=== PATIENT | male | born 1990 | race Caucasian/White ===

== ENCOUNTER 2016-11-01 18:14 | Emergency (ER) | payer MEDICAID ==
[~2016-11-01] VITALS: Ht 182.9 cm; Wt 92.3 kg
[2016-11-01 18:33] VITALS: BP 149/76
== END 2016-11-01 19:20 | disposition home or self-care (01) ==
LOC: ED 19:14
DX: Z76.0 Encounter for issue of repeat prescription (principal); F31.70 Bipolar disorder, currently in remission, most recent episode unspecified
CPT/HCPCS: 99283

== ENCOUNTER 2017-02-10 17:17 | Emergency (ER) | payer MEDICAID ==
[~2017-02-10] VITALS: Ht 182.9 cm; Wt 92.4 kg
[2017-02-10 17:19] VITALS: BP 130/80
== END 2017-02-10 17:42 | disposition home or self-care (01) ==
LOC: ED 17:27
DX: T63.301A Toxic effect of unspecified spider venom, accidental (unintentional), initial encounter (principal); F90.9 Attention-deficit hyperactivity disorder, unspecified type; F17.200 Nicotine dependence, unspecified, uncomplicated; F31.9 Bipolar disorder, unspecified
CPT/HCPCS: 99283

== ENCOUNTER 2017-05-19 16:49 | Emergency (ER) | payer MEDICAID ==
[~2017-05-19] VITALS: Ht 182.9 cm; Wt 79.1 kg
[2017-05-19 17:27] LABS: HEMATOCRIT 40.1 % (39.2-51.8); HEMOGLOBIN 13.8 g/dL (13.7-18.0); WHITE BLOOD COUNT 13.7 x10^3/uL (3.4-10)
[2017-05-19] MEDS ORDERED: SODIUM CHLORIDE 0.9% 1,000ML IVBOLUS ONE (17:30)
[2017-05-19] MEDS ORDERED: LIDOCAINE 1%, 20ML SQ ONE (17:30)
[2017-05-19] MEDS ORDERED: SODIUM CHLORIDE FLUSH 10ML SYR IVF ONE (17:30)
[2017-05-19 17:39] LABS: BLOOD UREA NITROGEN 11 mg/dL (7-18)
[2017-05-19] MEDS ORDERED: HYDROmorphone 1 MG/ML, 1ML ONE (18:34)
[2017-05-19] MEDS ORDERED: LORazepam 2 MG/ML, 1ML ONE ×2 (18:35→18:52)
[2017-05-19] MEDS ORDERED: ONDANSETRON 2MG/ML, 2ML ONE (18:35)
[2017-05-19] MEDS ORDERED: HYDROmorphone 1 MG/ML, 1ML IVPush PRN (19:00)
[2017-05-19] MEDS ORDERED: LORazepam 2 MG/ML, 1ML IVPush ONE ×2 (19:00)
[2017-05-19] MEDS ORDERED: ONDANSETRON 2MG/ML, 2ML IVPush ONE (19:00)
[2017-05-19] MEDS ORDERED: OMNIPAQUE 350 MG/ML, 100ML BOTTLE ONE (19:29)
[2017-05-19] MEDS ORDERED: CEFTRIAXONE PMX 1GM/50ML 50 ML ONE (19:48)
[2017-05-19] MEDS ORDERED: CEFTRIAXONE PMX 1GM/50ML 50 ML IV ONE (20:00)
[2017-05-19 21:22] VITALS: BP 120/60
== END 2017-05-19 21:27 | disposition home or self-care (01) ==
LOC: ED 17:59
DX: L03.221 Cellulitis of neck (principal); M25.511 Pain in right shoulder; W50.0XXA Accidental hit or strike by another person, initial encounter; Y93.72 Activity, wrestling; Y92.89 Other specified places as the place of occurrence of the external cause; Y99.8 Other external cause status
CPT/HCPCS: 36415; 70491; 73030; 80048; 82040; 83605; 85025; 87040; 96361; 96365; 96366; 96375; 96376; 99285; J0696; J1170; J2060; J2405; J7030; Q9967

== ENCOUNTER 2017-05-21 08:07 | Observation (INO) | payer MEDICAID ==
[~2017-05-21] VITALS: Ht 180.3 cm; Wt 81.8 kg
[2017-05-21] MEDS ORDERED: SODIUM CHLORIDE 0.9% 1,000 ML IV ONE (08:29)
[2017-05-21] MEDS ORDERED: SODIUM CHLORIDE FLUSH 10ML SYR IVF ONE (08:30)
[2017-05-21] MEDS ORDERED: ONDANSETRON 2MG/ML, 2ML IVPush ONE (08:30)
[2017-05-21] MEDS ORDERED: PIPERACILLIN/TAZO/PMX 3.375GM 50 ML IVPB ONE (08:30)
[2017-05-21] MEDS ORDERED: MORPHINE SULFATE 4 MG/ML, 1ML ONE ×2 (08:34→09:40)
[2017-05-21] MEDS ORDERED: ONDANSETRON 2MG/ML, 2ML ONE ×2 (08:35→11:22)
[2017-05-21] MEDS: MORPHINE SULFATE 4 MG/ML, 1ML IVPush PRN ×2 (08:49→09:42)
[2017-05-21] MEDS ORDERED: PIPERACILLIN/TAZO/PMX 3.375GM 50 ML ONE (09:06)
[2017-05-21 09:12] LABS: HEMATOCRIT 47.3 % (39.2-51.8); WHITE BLOOD COUNT 14.5 x10^3/uL (3.4-10)
[2017-05-21 09:16] LABS: BLOOD UREA NITROGEN 7 mg/dL (7-18)
[2017-05-21 09:46] VITALS: BP 132/80
[2017-05-21] MEDS ORDERED: HYDR1TAB12 PO (10:42)
[2017-05-21] MEDS ORDERED: BACITRACIN 50,000 UNIT ONE (10:42)
[2017-05-21] MEDS ORDERED: FENTANYL PF 100 MCG/2ML ONE ×4 (10:46→12:07)
[2017-05-21] MEDS ORDERED: PROPOFOL 10 MG/ML, 20ML ONE ×2 (10:46)
[2017-05-21] MEDS ORDERED: MIDAZOLAM 1 MG/ML, 2ML ONE (10:46)
[2017-05-21] MEDS ORDERED: LIDOCAINE GEL 2%, 5ML ONE (10:48)
[2017-05-21] MEDS ORDERED: MEPERIDINE/PF 25MG/0.5ML IVPush PRN (12:00)
[2017-05-21] MEDS ORDERED: OXYcodone 5 MG/5 ML ORAL.SOL UDC PO PRN (12:00)
[2017-05-21] MEDS ORDERED: ONDANSETRON 2MG/ML, 2ML IVPush PRN (12:00)
[2017-05-21] MEDS ORDERED: HYDROmorphone 1 MG/ML, 1ML IV PRN (12:00)
[2017-05-21] MEDS ORDERED: PROMETHAZINE 25 MG/ML, 1ML IV PRN (12:00)
[2017-05-21] MEDS ORDERED: ACETAMINOPHEN 325 MG TABLET PO PRN (12:00)
[2017-05-21] MEDS ORDERED: MIDAZOLAM 1 MG/ML, 2ML IV PRN (12:00)
[2017-05-21] MEDS ORDERED: ACETAMINOPHEN 650 MG/20.3 ML UDC ONE (12:07)
[2017-05-21] MEDS ORDERED: OXYcodone 5 MG/5 ML ORAL.SOL UDC ONE (12:07)
[2017-05-21] MEDS: FENTANYL PF 100 MCG/2ML IV PRN ×2 (12:15→12:30)
[2017-05-21] MEDS ORDERED: SUCCINYLCHOLINE 20 MG/ML, 10ML ONE (16:52)
[2017-05-21] MEDS ORDERED: DEXAMETHASONE 4 MG/ML, 1ML ONE (16:52)
== END 2017-05-21 13:40 | disposition home or self-care (01) ==
LOC: ED 08:26 → ORIP 09:44
PROVIDERS: ADMIT Surgery; ATTEND Surgery
DX: L02.213 Cutaneous abscess of chest wall (principal); F31.9 Bipolar disorder, unspecified; F90.9 Attention-deficit hyperactivity disorder, unspecified type
CPT/HCPCS: 10060; 36415; 80048; 82040; 83605; 85025; 85610; 87040; 87070; 87075; 87147; 87205; 96365; 96375; 96376; 99285; G0378; J0330; J1100; J2250; J2405; J2543; J2704; J3010; J7030

== ENCOUNTER 2017-05-22 10:52 | Emergency (ER) | payer MEDICAID ==
[~2017-05-22] VITALS: Ht 182.9 cm; Wt 82.9 kg
[~2017-05-22 10:52] MED LIST: HYDR1TAB12 PO
[2017-05-22 10:56] VITALS: BP 158/95
== END 2017-05-22 13:08 | disposition home or self-care (01) ==
LOC: ED 12:27
DX: Z48.01 Encounter for change or removal of surgical wound dressing (principal)
CPT/HCPCS: 99283